=== PATIENT | male | born 1945 | race Caucasian/White ===

== ENCOUNTER → 2022-01-19 09:46 | Outpatient (BNVA) | payer MEDICARE, SELFPAY | PROVIDERS: Visit Provider Urology | DX: R97.20 Elevated prostate specific antigen [PSA] (principal); N40.1 Benign prostatic hyperplasia with lower urinary tract symptoms; N13.8 Other obstructive and reflux uropathy | CPT/HCPCS: 51798; 99202 ==

== ENCOUNTER → 2022-05-22 10:52 | Outpatient (BNVA) | payer MEDICARE, SELFPAY | PROVIDERS: PCP Internal Medicine; Visit Provider Urology | DX: R97.20 Elevated prostate specific antigen [PSA] (principal); N40.1 Benign prostatic hyperplasia with lower urinary tract symptoms; N13.8 Other obstructive and reflux uropathy | CPT/HCPCS: 51798; 99212 ==

== ENCOUNTER → 2022-12-05 08:15 | Outpatient (BNVA) | payer MEDICARE, SELFPAY | PROVIDERS: PCP Internal Medicine; Visit Provider Urology | DX: N40.1 Benign prostatic hyperplasia with lower urinary tract symptoms (principal); N13.8 Other obstructive and reflux uropathy; R97.20 Elevated prostate specific antigen [PSA] | CPT/HCPCS: 51798; 99212 ==

== ENCOUNTER 2023-12-05 08:17 | Outpatient (AMB) | payer MEDICARE, SELFPAY ==
--- NOTE | 2023-12-05 08:24 | MHC.OFFVIS ---
Intake Visit Reasons: 1Y PSA(SET) Intake Note: Patient is Present for PVR/PSA Urology Med: Finasteride Antibiotic Allergy: None Blood Thinner: None Last PVR: 39 Todays PVR: 0 Allergies No Known Allergies Allergy (Verified 12/05/23 08:25) HPI Comments Details: Sudhir is a pleasant male. He is a patient of Dr. Patel. He is seen for the following urologic conditions - elevated PSA and BPH Slight rise in finasteride Continue with medication Twelve month follow-up Discussed his diabetes. Has significant improvement with insulin control by going for evening light exercise Has been placed on Mounjaro and has lost 40 lb BPH with elevated PSA PSA movement detected through primary care surveillance 11/17 9.2, 04/19 3.0, 12/18 2.1, 12/19 3.0 Minimal urinary symptoms Nocturia x2, feeling of complete emptying, minimal urge, adequate stream LOKESH normal Discussed use of finasteride versus biopsy verses urine DNA test 12 month follow-up PSA PFSH Medical History HTN (hypertension) Renal insufficiency Review of Systems Const Denies chills and Denies fever(s) Card Reports no additional complaints and Denies syncope Resp Denies cough GI Denies abdominal pain and Denies heartburn Reports as per HPI and Denies change in libido Neuro Denies syncope Psych Denies change in libido Endo Denies change in libido Physical Exam Const General: cooperative, healthy appearing, comfortable and no acute distress Orientation/consciousness: patient oriented x3 HEENT Face and sinus: Yes normal facial exam Mouth: moist mucous membranes Neck Neck: Yes normal visual inspection, Yes full ROM and Yes trachea midline Chest Chest palpation & inspection: normal inspection of the chest Resp Effort & Inspection: normal respiratory effort, able to speak in complete sentences and no respiratory distress GI Inspection: Yes normal to inspection Back/Spine/Pelvis Cervical Spine: normal cervical lordosis Thoracic/Lumbar Spine: thoracic and lumbar spine normal to inspection Skin General skin exam: no rashes or lesions noted Neuro General: patient oriented x3, gait normal, tone normal and moves all extremities Extrem General: Yes normal to inspection and Yes capillary refill normal Office Procedures Post Void Residual Post Residual Void Post Void Residual (PVR): 0 [id number] Void Residual by ultrasound Assessment & Plan Assessment & Plan (1) Elevated PSA: Code(s): R97.20 - Elevated prostate specific antigen [PSA] Category: Medical (2) BPH w urinary obs/LUTS: Code(s): N40.1 - Benign prostatic hyperplasia with lower urinary tract symptoms; N13.8 - Other obstructive and reflux uropathy Category: Medical Plan Twelve month follow-up PSA Orders: Orders AMB Post Void Residual by ultrasound Today N13.8 - Other obstructive and reflux uropathy, N40.1 - Benign prostatic hyperplasia with lower urinary tract symptoms Prostate Specific Antigen 364 Days R97.20 - Elevated prostate specific antigen [PSA] Patient Instructions: Imaging studies, laboratory and physical exam results were discussed and reviewed in detail. No major barriers to patient understanding were identified. An opportunity to ask questions regarding the treatment plan was provided. All questions were answered. The patient expressed understanding and agreement with the above treatment plan. The patient is aware they should contact our office by phone for worsening of their current condition or the appearance of new urologic symptoms. Compliance is encouraged with any medications and followup testing that is ordered. It is a privilege to participate in the urologic care of your patient. If you have any questions or concerns regarding treatment for the above conditions, or other urologic issues, please do not hesitate to contact me. The office telephone contact is [phone]. This note is constructed using voice recognition software. While every effort has been made to ensure accuracy rehabilitation technician errors may have been included. Yours sincerely, Dr Ihsan Lazo MD, DEA [facility] - Urology Providers of Expert, Compassionate Care for the Genitourinary System Coding Level of Care Code Est Pt Level 4 (98711) Diagnoses Elevated PSA R97.20 BPH w urinary obs/LUTS N40.1; N13.8 CPT Codes Post Residual Void - PVR CPT Code: 51615-Wwcj Void Residual by ultrasound ([id number])
== END 2023-12-05 09:13 | disposition home or self-care (01) ==
PROVIDERS: Visit Provider Urology
DX: R97.20 Elevated prostate specific antigen [PSA] (principal); N40.1 Benign prostatic hyperplasia with lower urinary tract symptoms; N13.8 Other obstructive and reflux uropathy
CPT/HCPCS: 99213

== ENCOUNTER → 2023-12-05 08:17 | Outpatient (BNVA) | payer MEDICARE, SELFPAY | PROVIDERS: Visit Provider Urology | DX: N40.1 Benign prostatic hyperplasia with lower urinary tract symptoms (principal); N13.8 Other obstructive and reflux uropathy; R97.20 Elevated prostate specific antigen [PSA] | CPT/HCPCS: 51798; 99212 ==

== ENCOUNTER 2024-12-04 08:23 | Outpatient (AMB) | payer MEDICARE, SELFPAY ==
--- OUTSIDE RECORDS SUMMARY | 2024-12-04 08:34 | XMS_ITS | Clinical Summary ---
Author Organization [facility] Address [address] [place] [address] Care Team Providers Care Infection Control Nurse Name Role Phone Cori Wilhelm APRN Primary Care Provider [phone] Choco Cori Rodriguez APRN Unavailable [phone] Allergies No known active allergies Medications finasteride (PROSCAR) 5 MG tablet Take 1 tablet (5 mg total) by mouth daily. Take one tablet by mouth daily 022 Active SUPPLY DME MISCIndications :Diabetes mellitus type 2, insulin dependent ([facility]) 32 gauge, 4 mm pen needles for insulin pen; inject long acting insulin subcutaneously as instructed at bedtime 100 each 022 Active hydrocortisone 2.5 % cream PRN 023 Active SUPPLY DME MISCIndications :Diabetes mellitus type 2, insulin dependent ([facility]) One touch Ultra test strips, test blood sugar two times a day 200 each 024 Active SUPPLY DME MISCIndications :Diabetes mellitus type 2, insulin dependent ([facility]) Lancets, for testing blood sugar two times a day 200 each 6 024 Active ondansetron (ZOFRAN) 4 MG tabletIndicatio ns:Nausea Take 1 tablet (4 mg total) by mouth 3 times daily (every 8 hours) as needed for nausea or vomiting. 20 tablet 024 Active glucose blood test stripIndication s:Diabetes mellitus type 2, insulin dependent ([facility]) Test blood glucose two times a day 200 test strip 1 024 Active OneTouch Delica Lancets 33G MiscIndications :Diabetes mellitus type 2, insulin dependent (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 90 tablet 1 024 Active amLODIPine (NORVASC) 10 MG tabletIndicatio ns:Primary hypertension TAKE 1 TABLET BY MOUTH DAILY 90 tablet 3 024 Active spironolactone (ALDACTONE) 25 MG tabletIndicatio ns:Primary hypertension TAKE 1 TABLET BY MOUTH DAILY 90 tablet 3 024 Active pioglitazone (ACTOS) 45 MG tabletIndicatio ns:Diabetes mellitus type 2, insulin dependent (HCC) TAKE 1 TABLET BY MOUTH DAILY 90 tablet 3 024 Active Toujeo Max SoloStar 300 UNIT/ML CONCENTRATED prefilled pen injectionIndica tions:Diabetes mellitus type 2, insulin dependent (HCC) INJECT 36 UNITS SUBCUTANEOUSLY AT NIGHT 12 mL 3 024 Active atorvastatin (LIPITOR) 80 MG tabletIndicatio ns:Diabetes mellitus type 2, insulin dependent (HCC) TAKE 1 TABLET BY MOUTH DAILY 90 tablet 3 024 Active Jardiance 10 MG tabletIndicatio ns:CKD stage G3b/A1, GFR 30-44 and albumin creatinine ratio <30 mg/g (HCC),Primary hypertension,Di abetes mellitus type 2, insulin dependent (HCC) TAKE 1 TABLET BY MOUTH EVERY MORNING 90 tablet 3 025 Active hydroCHLOROthia zide (HYDRODIURIL) 25 MG tabletIndicatio ns:Primary hypertension TAKE 1 TABLET BY MOUTH DAILY 90 tablet 3 025 Active metFORMIN (GLUCOPHAGE) 500 MG tabletIndicatio ns:Diabetes mellitus type 2, insulin dependent (HCC) TAKE 1 TABLET BY MOUTH TWICE DAILY WITH MEALS 180 tablet 3 025 Active Mounjaro 2.5 MG/0.5ML pen-injectorInd ications:Diabet es mellitus type 2, insulin dependent (HCC) INJECT THE CONTENTS OF ONE PEN SUBCUTANEOUSLY WEEKLY DIRECTED 6 mL 1 025 Active tirzepatide (Mounjaro) 2.5 mg/0.5 mL pen-injectorInd ications:Diabet es mellitus type 2, insulin dependent (HCC) INJECT THE CONTENTS OF ONE PEN SUBCUTANEOUSLY WEEKLY DIRECTED 6 mL 1 024 2024 Discontinued metFORMIN (GLUCOPHAGE) 500 MG tabletIndicatio ns:Diabetes mellitus type 2, insulin dependent (HCC) Take 1 tablet (500 mg total) by mouth 2 (two) times a day with meals. 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 Lazo [facility] for urologist. Does not remember the name of the medication he is talking, will call back with the name. Mostly asymptomatic except for mild nocturia. Has PSA and follow-up with urology pending within the next few weeks. Primary hypertension 05/08/2022 Assessment & Plan (04/07/2024 10:28 PM EDT): Blood pressure is normal. No side effects. Patient will continue with current regimen. Assessment & Plan (12/11/2023 11:21 PM EDT): Blood pressure is normal. No side effects. Patient will continue with current regimen. Continue a minimum of 150 minutes of exercise a week. \ Assessment & Plan (03/27/2023 8:52 AM EDT): Blood pressure is normal. No side effects. Patient will continue with current regimen. Recommend a minium of 150 minutes of exercise a week. Assessment & Plan (12/17/2022 9:01 AM EDT): Blood pressure is normal. No side effects. Patient will continue with current regimen. DASH diet Recommend a minium of 150 minutes of exercise a week. Assessment & Plan (05/08/2022 9:18 AM EDT): Stable on current medication regimen which she will continue. Check CMP and UA. Dyslipidemia 05/08/2022 Assessment & Plan (12/11/2023 11:22 PM EDT): Stable LDL at goal will continue Atorvastatin daily. Assessment & Plan (03/27/2023 8:46 AM EDT): LDL 57 mg/DL At goal. Will continue atorvastatin 80 mg daily. Assessment & Plan (12/17/2022 9:01 AM EDT): LDL at goal will continue Atorvastatin. Assessment & Plan (05/08/2022 9:19 AM EDT): Tolerates current dose of atorvastatin well and will continue. Check fasting lipid panel. LDL goal is 70 or less Diabetes mellitus type 2, insulin dependent 04/28 Assessment & Plan (04/07/2024 10:31 PM EDT): Patient hemoglobin A1c is 6.1% . Patient is at goal No side effects with current regimen Will decrease Metformin to 500 mg bID, Toushauna and Jeanettero Continue to recommend ADA diet. Exercise a minimum of 150 minutes/week. Annual eye exam Will continue to monitor quarterly. Assessment & Plan (12/11/2023 11:20 PM EDT): Patient hemoglobin A1c is 6.2% Patient is at goal No side effects with current regimen He will continue metformin, mounjaro at current dose Will begain to Decrease actos. Continue to recommend ADA diet. Exercise a minimum of 150 minutes/week. Annual eye exam Will continue to monitor quarterly. Assessment & Plan (06/13/2023 12:45 PM EST): Patient is hemoglobin A1c has increased. He notes an increase in portion and snacking. He is walking less due to weather. But he still rides his bike is much as possible. At this time we will add Mounjaro to regimen to help with weight loss and improve blood glucose. Discussed common side effects patient willing to start. Assessment & Plan (03/27/2023 8:45 AM EDT): Patient hemoglobin A1c is 7.1% . Patient is at goal No side effects with current regimen She/He will continue his current regimen Continue to recommend ADA diet. Exercising 3 to 5 days a week for minimal 35 minutes. Annual eye exam Will continue to monitor quarterly. Assessment & Plan (12/17/2022 9:00 AM EDT): Patient hemoglobin A1c was 7.1%. Patient is at goal No side effects with current regimen He will continue his current regimen of metformin and Toujeo Continue to recommend ADA diet. He will continue regular exercise. Annual eye exam Will continue to monitor quarterly. Assessment & Plan (05/08/2022 9:17 AM EDT): Continue current dose medications. Check labs. Patient reports eye exam is up-to-date but does not remember the name of his eye doctor. Will obtain eye exam reports once we know the doctor's information. Check labs. Follow-up in 6 weeks. BMI 32.0-32.9,adult 05/08/2022 Assessment & Plan (05/08/2022 9:18 AM EDT): Weight loss counselling done - diet and exercise. Colon cancer screening 05/08/2022 Assessment & Plan (06/19/2022 8:15 AM EST): Done summer at [facility] Assessment & Plan (05/08/2022 9:19 AM EDT): Address at next visit. Vitamin D deficiency 05/08/2022 Assessment & Plan (05/08/2022 9:20 AM EDT): Continue Vit D supplements if any. Check levels and replenish orally ( OTC or prescription) if needed. History of skin cancer 05/08/2022 Assessment & Plan (05/08/2022 9:19 AM EDT): History of basal cell cancer, right side of face, s/p excision. Sees dermatology in [place] twice a year for skin cancer checks. Advised to use sunscreen when outside of SPF 50. Chronic edema 05/08/2022 Assessment & Plan (05/08/2022 9:30 AM EDT): Controlled with support hose and diuretics. Continue same. Encounters Date Type Department Care Team Description 11/30/2024 Orders Only [facility] [address] [place] [address] Primary Care, Scan 11/29/[address] [address] Cori Wilhelm APRN Diabetes mellitus type 2, insulin dependent (HCC) 11/23/2024 Orders Only [address] [address] Cori Wilhelm APRN Primary hypertension (Primary Dx); Diabetes mellitus type 2, insulin dependent (HCC); Dyslipidemia; Screening for prostate cancer 11/23/[address] [address] Cori Wilhelm APRN 11/07/[address] [address] Cori Wilhelm APRN Diabetes mellitus type 2, insulin dependent (HCC) 09/06/[address] [address] Cori Wilhelm APRN Primary hypertension from Last 3 Months Immunizations Immunization Administration Dates Next Due Influenza High-Dose Quadriva lent,(FLUZONE HIGH-DOSE), Perservative Free IM 0.7 mL 65 years and older 04/14/2021 Pneumococcal Polysaccharide 23-Valent 03/27/2023 Social History Tobacco Use Types Packs/Day Years Used Date Smoking Tobacco: Never Smokeless Tobacco: Never Tobacco Cessation:Counseling Given: Not Answered Alcohol Use Standard Drinks/Week Comments Yes 0 (1 standard drink = 0.6 oz pur e alcohol) social use PHQ-2 Answer Date Recorded PHQ-2 Total Score 0 12/11/2023 Sex and Gender Information Value Date Recorded Sex Assigned at Male 12/10/2023 8:24 PM EDT Legal Sex Male 3:30 PM EDT Gender Identity Male 12/10/2023 8:24 PM EDT Sexual Orientation Heterosexual (straight) 12/09 8:24 PM EDT Last Filed Vital Signs Vital Sign Reading Time Taken Comments Blood Pressure 132/64 04/07/2024 9:49 AM EDT Pulse 57 04/07/2024 9:49 AM EDT Temperature 36.3 ??C (97.3 ??F) 04/07/2024 9:49 AM ED T Respiratory Rate 17 04/07/2024 9:49 AM EDT Oxygen Saturation 98% 04/07/2024 9:49 AM EDT Inhaled Oxygen Concentration - - Weight 85.7 kg (189 lb) 04/07/2024 9:49 AM EDT Height 175.3 cm (5' 9 ) 04/07/2024 9:49 AM EDT Body Mass Index 27.91 04/07/2024 9:49 AM EDT Plan of Treatment Upcoming Encounters Date Type Department Care Team (Late st Contact Info) Description 12/11/2024 1:45 PM EDT Office Visit [facility] Department of Internal Medicine & Nephrology [place] [address] [facility] [address] [place] [phone] Ronald Wood MD [address] [facility] [address] [place] [address] 01/04/2025 3:00 PM EDT Office Visit [facility] [address] [facility] [address] [place] [phone] Cori Wilhelm APRN 100 [facility] [address] [place], [place] [address] Health Maintenance Due Date Last Done Comments Hepatitis C Virus Screening 1945 Creatinine with GFR 1957 Lipid Panel 1957 Microalbumin/Creatinine Ratio Urine 1965 Physical 1965 DTaP/Tdap/Td Vaccines (1 - Tdap) 1966 Zoster (Shingles) Vaccine (1 of 2) 1997 RSV Vaccine 60 years and older and Patients (1 - 1-dose 75+ series) 2022 Pneumococcal Vaccines 50+ (2 of 2 - PCV) 03/27/2024 03/27/2023 COVID-19 Vaccine (3 - season) 2024 10/28/2020, 09/30/2020 Ophthalmology Exam 05/08/2024 05/08/2023, 12/10/2022 Hemoglobin A1C 06/03/2024 12/02/2023, 05/29, 03/27/2023, Additional history exists Annual Wellness Visit 06/13/2024 06/13/2023, 022 Foot Exam 12/10/2024 12/11/2023, 11/26, 12/11/2023, Additional history exists Influenza Vaccine 02/26/2025 04/14/2021 Hepatitis B Vaccines Aged Out No long er eligible based on patient's age to complete this topic Procedures Procedure Name Priority Date/Time Associated Diagnosis Comments LAB RESULT Routine 11/27/2024 10:10 AM EDT HEMOGLOBIN A1C Routine 12/02/2023 HX OPHTHALMOLOGY TESTING PROCEDURES Routine 05/08/2023 from Last 3 Months or Most Recently Relevant to Health Maintenance Results * LAB RESULT (11/27/2024 10:10 AM EDT) us Scan Primary Care HX AMB PROCEDURES Edited Resul t - Final * Hemoglobin A1C (12/02/2023) Hemoglobin A1C 6.2 % Comment:SCANNED RESULT Blood specimen (specimen) Blood specimen / Unknown 12/02/2023 us Scan Primary Care LAB BLOOD ORDERABLES Edited Re sult - Final * OPHTHALMOLOGY TESTING PROCEDURES (05/08/2023) us Scan Ophthalmology HX AMB PROCEDURES Edited Resu lt - Final from Last 3 Months or Most Recently Relevant to Health Maintenance Insurance MEDICARE PART A & B [facility] MEDICARE PART A & B [facility] Care Teams Infection Control Nurse Relationship Specialty Start Date End Date Cori Wilhelm APRN [address] [place] [address] PCP - General Family Medicine 12/17/22 Cori Wilhelm APRN [address] [facility] [address] [place] [address] PCP - MSSP Attributed 10/28/23
--- OUTSIDE RECORDS SUMMARY | 2024-12-04 08:34 | XMS_ITS | Encounter Summary ---
Author Organization [facility] Address [address] [place] [address] Care Team Providers Care Occupational Therapy Department Chair Name Role Phone Cori Wilhelm ESTEBAN Primary Care Provider [phone] Cori Wilhelm ESTEBAN Unavailable [phone] Encounter Details Date Type Department Care Team (Late st Contact Info) Description 11/30/2024 Orders Only [facility] [address] [place] [address] Primary Care, Scan Social History Tobacco Use Types Packs/Day Years Used Date Smoking Tobacco: Never Smokeless Tobacco: Never Alcohol Use Standard Drinks/Week Comments Yes 0 (1 standard drink = 0.6 oz pur e alcohol) social use PHQ-2 Answer Date Recorded PHQ-2 Total Score 0 12/11/2023 Sex and Gender Information Value Date Recorded Sex Assigned at Male 12/10/2023 8:24 PM EDT Legal Sex Male 3:30 PM EDT Gender Identity Male 12/10/2023 8:24 PM EDT Sexual Orientation Heterosexual (straight) 12/09 8:24 PM EDT documented as of this encounter Plan of Treatment Upcoming Encounters Date Type Department Care Team (Late st Contact Info) Description 12/11/2024 1:45 PM EDT Office Visit [facility] Department of Internal Medicine & Nephrology [place] [address] [facility] [address] [place] [phone] Ronald Wood MD [address] [facility] [address] [place] [address] 01/04/2025 3:00 PM EDT Office Visit [facility] [address] [place] [address] Cori Wilhelm APRN [address] [place] [address] documented as of this encounter Procedures Procedure Name Priority Date/Time Associated Diagnosis Comments LAB RESULT Routine 11/27/2024 10:10 AM EDT documented in this encounter Results * LAB RESULT (11/27/2024 10:10 AM EDT) us Scan Primary Care HX AMB PROCEDURES Edited Resul t - Final documented in this encounter Visit Diagnoses Not on filedocumented in this encounter Care Teams Occupational Therapy Department Chair Relationship Specialty Start Date End Date Cori Wilhelm, ROUTE DELIVERY SERVICE DRIVER [address] [facility] [address] [place] [address] PCP - General Family Medicine 12/17/22 Cori Wilhelm, ROUTE DELIVERY SERVICE DRIVER [address] [facility] [address] [place] [address] PCP - MSSP Attributed 10/28/23 documented as of this encounter
--- OUTSIDE RECORDS SUMMARY | 2024-12-04 08:34 | XMS_ITS | Encounter Summary ---
Author Organization [facility] Address [address] [place] [address] Care Team Providers Care Entry Level Administrative Assistant Name Role Phone Steven Patel MD Primary Care Provider Cori Wilhelm APRN Primary Care Provider [phone] Cori Wilhelm APRN Unavailable Encounter Details Date Type Department Care Team (Late Contact Info) Description 12/11/2022 Scanned Document [facility] EMERGENCY MED SCAN Emergency Medicine, Scan Social History Tobacco Use Types Packs/Day Years Used Date Smoking Tobacco: Never Smokeless Tobacco: Never Alcohol Use Standard Drinks/Week Comments Yes 0 (1 standard drink = 0.6 oz pur e alcohol) social use Sex and Gender Information Value Date Recorded Sex Assigned at Male 12/10/2023 8:24 PM EDT Legal Sex Male 3:30 PM EDT Gender Identity Male 12/10/2023 8:24 PM EDT Sexual Orientation Heterosexual (straight) 12/09 8:24 PM EDT documented as of this encounter Plan of Treatment Upcoming Encounters Date Type Department Care Team (Late Contact Info) Description 12/11/2024 1:45 PM EDT Office Visit [facility] Department of Internal Medicine & Nephrology [place] [address] [facility] [address] [place] [address] Ronald Wood MD [address] [facility] [address] [place], [place] [id number] 01/04/2025 3:00 PM EDT Office Visit [facility] 100 [facility] [address] [place] [address] Cori Wilhelm APRN [address] [place] [address] documented as of this encounter Visit Diagnoses Not on filedocumented in this encounter Care Teams Entry Level Administrative Assistant Relationship Specialty Start Date End Date Steven Patel MD PCP - General Internal Medicine 05/08/22 12/16/22 Cori Wilhelm APRN [address] [place] [address] PCP - General Family Medicine 12/17/22 Cori Wilhelm APRN [address] [place] [address] PCP - MSSP Attributed 10/28/23 documented as of this encounter
--- OUTSIDE RECORDS SUMMARY | 2024-12-04 08:34 | XMS_ITS | Encounter Summary ---
Author Organization [facility] Address [address] [place] [address] Care Team Providers Care Piercing Specialist Name Role Phone Cori Wilhelm APRN Primary Care Provider [phone] Cori Wilhelm APRN Unavailable Reason for Visit * Reason Comments Medication Refill Encounter Details Date Type Department Care Team (Late st Contact Info) Description 11/29/2024 Refill [facility] 100 [facility] [address] [place] [phone] PlentywoodCori tiwari APRN [address] [facility] [address] [place] [address] Diabetes mellitus type 2, insulin dependent (HCC) Social History Tobacco Use Types Packs/Day Years [...] PM EDT documented as of this encounter Miscellaneous Notes * Telephone Encounter - Pham Baltazar LPN - 11/30/2024 8:17 AM EDTSummary: Labs completed at [facility] 11.27.2024 Spoke with pt. He completed labs at [facility] on Saturday11/27/2024. documented in this encounter Plan of Treatment Upcoming Encounters Date Type Department Care Team (Late st Contact Info) Description 12/11/2024 1:45 PM EDT Office Visit [facility] Department of Internal Medicine & Nephrology [place] [address] [facility] 100 [place] [address] Ronald Wood MD 85 [facility] [address] [place] [address] 01/04/2025 3:00 PM EDT Office Visit [facility] [address] [place] [address] Cori Wilhelm APRN [address] [address] documented as of this encounter Visit Diagnoses Diagnosis Diabetes mellitus type 2, insulin dependent (HCC) documented in this encounter Care Teams Piercing Specialist Relationship Specialty Start Date End Date Cori Wilhelm APRN [address] [address] PCP - General Family Medicine 12/17/22 Cori Wilhelm APRN [address] [address] PCP - MSSP Attributed 10/28/23 documented as of this encounter
--- NOTE | 2024-12-04 08:35 | MHC.OFFVIS ---
Intake Visit Reasons: 1y/PSA Intake Note: Patient is Present for 1 year follow up/PSA Urology Med: Finasteride Antibiotic Allergy: None Blood Thinner: None PVR:63ml Allergies No Known Allergies Allergy (Verified 12/04/24 08:38) HPI Comments Details: Sudhir is a pleasant male. He is a patient of Dr. Patel. He is seen for the following urologic conditions - elevated PSA and BPH Slight rise in finasteride Continue with medication Twelve month follow-up Discussed his diabetes. Has significant improvement with insulin control by going for evening light exercise Has been placed on Mounjaro and has lost 40 lb Cut finasteride back to Saturday, Saturday, Saturday Urinary Symptoms Review - Long-term finasteride usage - PSA decreased from 9.2 (October 2021) to 2.8 (November 2024) with finasteride therapy - Reduced frequency of urinary tract symptoms noted - Type 2 Diabetes managed with reduced insulin requirement BPH with elevated PSA PSA movement detected through primary care surveillance 11/17 9.2, 04/19 3.0, 12/18 2.1, 12/19 3.0, 12/20 2.8 Minimal urinary symptoms Nocturia x2, feeling of complete emptying, minimal urge, adequate stream LOKESH normal Discussed use of finasteride versus biopsy verses urine DNA test 12 month follow-up PSA PFSH Medical History HTN (hypertension) Renal insufficiency Review of Systems Const Denies chills and Denies fever(s) Card Reports no additional complaints and Denies syncope Resp Denies cough GI Denies abdominal pain and Denies heartburn Reports as per HPI and Denies change in libido Neuro Denies syncope Psych Denies change in libido Endo Denies change in libido Physical Exam Const General: cooperative, healthy appearing, comfortable and no acute distress Orientation/consciousness: patient oriented x3 HEENT Face and sinus: Yes normal facial exam Mouth: moist mucous membranes Neck Neck: Yes normal visual inspection, Yes full ROM and Yes trachea midline Chest Chest palpation & inspection: normal inspection of the chest Resp Effort & Inspection: normal respiratory effort, able to speak in complete sentences and no respiratory distress GI Inspection: Yes normal to inspection Back/Spine/Pelvis Cervical Spine: normal cervical lordosis Thoracic/Lumbar Spine: thoracic and lumbar spine normal to inspection Skin General skin exam: no rashes or lesions noted Neuro General: patient oriented x3, gait normal, tone normal and moves all extremities Extrem General: Yes normal to inspection and Yes capillary refill normal Assessment & Plan Assessment & Plan (1) BPH w urinary obs/LUTS: Code(s): N40.1 - Benign prostatic hyperplasia with lower urinary tract symptoms; N13.8 - Other obstructive and reflux uropathy Category: Medical (2) Elevated PSA: Code(s): R97.20 - Elevated prostate specific antigen [PSA] Category: Medical Plan Plan 1. Elevated Prostate-Specific Antigen Psa PSA controlled through finasteride. Reduce to MWF. Continue monitoring. 2. Benign Prostatic Hyperplasia Bph Managed effectively with finasteride. Observance of symptoms recommended. Discussion Notes I discussed with the patient the effective management of elevated PSA through finasteride and advised a reduction to thrice weekly. I explained the importance of monitoring PSA levels and the potential impact of reducing medication on hair loss. For BPH, I recommended maintaining the reduced finasteride dose. Regarding diabetes management, we reviewed the success of Mounjaro and the significant weight loss impact, allowing for decreased insulin needs. We discussed the risk of weight gain if the medication is stopped. The chronic kidney disease management involving Jardiance was addressed, with emphasis on monitoring nocturia and renal function to adjust the medication dosage. The patient was informed of all potential risks and benefits and was advised on anticipatory guidance for each condition. Patient Instructions - Continue reduced dose of finasteride to Saturday, Saturday, Saturday. - Regularly monitor PSA levels and report any changes in urinary symptoms. - Maintain physical activity and walking regimen. - Monitor blood glucose levels and adjust insulin as necessary. - Stay on current Jardiance dose and monitor kidney function. - Report any new symptoms or changes immediately. Patient Instructions: This note is constructed using voice recognition software. While every effort has been made to ensure accuracy senior physical therapist errors may have been included. Imaging studies, laboratory and physical exam results were discussed and reviewed in detail. No major barriers to patient understanding were identified. An opportunity to ask questions regarding the treatment plan was provided. All questions were answered. The patient expressed understanding and agreement with the above treatment plan. The patient is aware they should contact our office by phone for worsening of their current condition or the appearance of new urologic symptoms. Compliance is encouraged with any medications and followup testing that is ordered. It is a privilege to participate in the urologic care of your patient. If you have any questions or concerns regarding treatment for the above conditions, or other urologic issues, please do not hesitate to contact me. The office telephone contact is [phone]. Sincerely, Dr Ihsan Lazo MD, DEA [facility] - Urology Compassionate Specialist Care for the Genitourinary System Coding Level of Care Code Est Pt Level 4 (27350) Complex EM visit Add On G2211 Diagnoses BPH w urinary obs/LUTS N40.1; N13.8 Elevated PSA R97.20
--- OUTSIDE RECORDS SUMMARY | 2024-12-04 08:35 | XMS_ITS | Clinical Summary ---
Author Organization [address] Address [address] [place] [address] Care Team Providers Care Granite Setter Name Role Phone Choco Cori Rodriguez NP Primary Care Provider [phone] Allergies No known active allergies Medications amLODIPine (NORVASC) 10 mg tablet Take 1 tablet (10 mg total) by mouth daily. 3 Active atorvastatin (LIPITOR) 80 mg tablet Take 1 tablet (80 mg total) by mouth daily. 3 Active carvediloL (COREG) 12.5 mg Immediate Release tablet Take 0.5 tablets (6.25 mg total) by mouth. 4 Active JARDIANCE 10 mg tablet Take 1 tablet (10 mg total) by mouth daily. 4 Active finasteride (PROSCAR) 5 mg tablet 4 Active hydroCHLOROthi azide (HYDRODIURIL) 25 mg tablet Take 1 tablet (25 mg total) by mouth daily. 3 Active hydrocortisone (HYTONE) 2.5 % cream PRN 3 Active TOUJEO MAX U-300 SOLOSTAR 300 unit/mL (3 mL) pen INJECT 36 UNITS SUBCUTANEOUSLY AT NIGHT 4 Active metFORMIN (GLUCOPHAGE) 500 mg Immediate Release tablet Take 1 tablet (500 mg total) by mouth. 4 Active ondansetron (ZOFRAN) 4 mg tablet Take 1 tablet (4 mg total) by mouth every 8 (eight) hours as needed. 4 Active MOUNJARO 2.5 mg/0.5 mL Pen Injector INJECT THE CONTENTS OF ONE PEN (2.5MG) SUBCUTANEOUSLY WEEKLY DIRECTED 4 Active spironolactone (ALDACTONE) 25 mg tablet Take 1 tablet (25 mg total) by mouth daily. 3 Active pioglitazone (ACTOS) 45 mg tablet Take 1 tablet (45 mg total) by mouth daily. 3 Active azithromycin (ZITHROMAX) 250 mg tablet Take 2 tablets now, then take 1 tablet daily day 2-5. 6 tablet 4 Active Active Problems Problem Noted Date Diagnosed Date Persistent cough for 3 weeks or longer 4 Bronchitis 05/06/2024 Social History Tobacco Use Types Packs/Day Years Used Date Smoking Tobacco: Never Tobacco Cessation:Counseling Given: Not Answered Alcohol Use Standard Drinks/Week Comments Never 0 (1 standard drink = 0.6 oz pur e alcohol) Sex and Gender Information Value Date Recorded Sex Assigned at Not on file Legal Sex Male 8:22 PM EST Gender Identity Not on file Sexual Orientation Not on file Last Filed Vital Signs Vital Sign Reading Time Taken Comments Blood Pressure 122/75 05/11/2024 8:35 AM EDT Pulse 60 05/11/2024 8:35 AM EDT Temperature 36.7 ??C (98.1 ??F) 05/11/2024 8:35 AM ED T Respiratory Rate 16 05/11/2024 8:35 AM EDT Oxygen Saturation 99% 05/11/2024 8:35 AM EDT Inhaled Oxygen Concentration - - Weight 77.1 kg (170 lb) 05/11/2024 8:35 AM EDT Height 175.3 cm (5' 9 ) 05/11/2024 8:35 AM EDT Body Mass Index 25.1 05/11/2024 8:35 AM EDT Plan of Treatment Health Maintenance Due Date Last Done Comments HIV screening 1960 Hepatitis C screening 1965 Prediabetes Surveillance 1965 Tetanus adult (Td q 10,TDAP once) 1967 Lipid disorder screening 1987 Diabetes screening 1992 Shingles vaccine (Shingrix) (1 of 2 - Shingrix (RZV) 2 Dose Standard Series) 1997 RSV Immunization (1 - 1-dose 75+ series) 2022 Pneumococcal Vaccine (50+ ye ars) (2 of 2 - PCV) 03/27/2024 03/27/2023 Covid-19 vaccine series (1 - 2023- season) 2024 Influenza vaccine 03/29/2025 04/14/2021 Meningococcal Vaccine Aged Out No willam janeth eligible based on patient's age to complete this topic Insurance MEDICARE [facility] MEDICARE [facility] MEDICARE [facility] Member Subscriber Plan / Payer ( fective 2023-) Name:Sudhir Baltazar Relation to Subscriber:Self Name:Sudhir Baltazar Payer ID:[id number] Group ID:Not on file Type:Not on file Address: [place] [id number] [place] [id number] Care Teams Granite Setter Relationship Specialty Start Date End Date Cori Wilhelm NP [address] [facility] 101 [place] [address] PCP - General 05/06/24
--- OUTSIDE RECORDS SUMMARY | 2024-12-04 08:35 | XMS_ITS | Encounter Summary ---
Author Organization [address] [address] Care Team Providers Care Utility Mechanic Supervisor Name Role Phone Steven Patel MD Primary Care Provider [phone] Cori Wilhelm APRN Primary Care Provider Cori Wilhelm APRN Unavailable Encounter Details Date Type Department Care Team (Late Contact Info) Description 06/22/2022 Scanned Document [address] [place] [phone] [place] [id number] [place] [id number] Social History Tobacco Use Types Packs/Day Years [...] Orientation Heterosexual (straight) 12/09 8:24 PM EDT COVID-19 Exposure Response Date Recorded In the last 10 days, have yo u been in contact with someone who was confirmed or suspected to have Coronavirus/COVID-19? No / Unsure 06/19/2022 7:28 AM EST documented as of this encounter Plan of Treatment Upcoming Encounters Date Type Department Care Team (Late Contact Info) Description 12/11/2024 1:45 PM EDT Office Visit [facility] Department of Internal Medicine & Nephrology [place] [address] [place] [address] Ronald Wood MD 85 [facility] [address] [place] [address] 01/04/2025 3:00 PM EDT Office Visit [facility] [address] [place] [address] Cori Wilhelm APRN [address] [place] [address] documented as of this encounter Visit Diagnoses Not on filedocumented in this encounter Care Teams Utility Mechanic Supervisor Relationship Specialty Start Date End Date Steven Patel MD PCP - General Internal Medicine 05/08/22 12/16/22 Cori Wilhelm, ESTEBAN [address] [place] [address] PCP - General Family Medicine 12/17/22 Cori Wilhelm, ESTEBAN [address] [place] [address] PCP - MSSP Attributed 10/28/23 documented as of this encounter
--- OUTSIDE RECORDS SUMMARY | 2024-12-04 08:35 | XMS_ITS | Encounter Summary ---
Author Organization [facility] Address [address] [place] [address] Care Team Providers Care Store Stock Help Name Role Phone Pcp, No Primary Care Provider Unavailabl Steven Jay MD Primary Care Provider Cori Wilhelm APRN Primary Care Provider Cori Wilhelm APRN Unavailable Encounter Details Date Type Department Care Team (Late st Contact Info) Description 05/01/2022 Scanned Document [address] [phone] Provider, Generic Social History Tobacco Use Types Packs/Day Years Used Date Smoking Tobacco: Never Assessed Sex and Gender Information Value Date Recorded [...] Physicians Department of Internal Medicine & Nephrology [place] 160 [facility] [address] [place] [phone] Ronald Wood MD 85 [facility] [address] [place] [address] 01/04/2025 3:00 PM EDT Office Visit [address] [place] [address] Cori Wilhelm APRN [address] [facility] 101 [place] [address] documented as of this encounter Visit Diagnoses Not on filedocumented in this encounter Care Teams Store Stock Help Relationship Specialty Start Date End Date Pcp, No 80 [place] [address] PCP - General 03/29/22 05/07/22 Steven Patel MD 80 [place] [address] PCP - General Internal Medicine 05/08/22 12/16/22 Cori Wilhelm, ESTEBAN [address] [facility] 101 [place] [address] PCP - General Family Medicine 12/17/22 Cori Wilhelm, ESTEBAN [address] [facility] 101 [place] [address] PCP - MSSP Attributed 10/28/23 documented as of this encounter
--- OUTSIDE RECORDS SUMMARY | 2024-12-04 08:35 | XMS_ITS | Encounter Summary ---
Author Organization [facility] Address 100 [place] [address] Care Team Providers Care Diagram Clerk Name Role Phone Cori Wilhelm APRN Primary Care Provider [phone] Cori Wilhelm Jennifer ORELLANA Unavailable [phone] Encounter Details Date Type Department Care Team (Late st Contact Info) Description 12/12/2023 [facility] [address] [place] [phone] Cori Wilhelm BENEDICT RodriguezN [address] [place] [address] Diabetes mellitus type 2, insulin dependent (HCC) [...] encounter Miscellaneous Notes * Telephone Encounter - Judy To RN - 12/12/2023 2:24 PM EDT Last Visit: 12/11/23 * Telephone Encounter - Bridget Herbert MA - 12/12/2023 1:47 PM EDT Pharmacy stated pt needs 1 touch ultra test strips, 1 touch delica lancets, both needs ic10 code documented in this encounter Plan of Treatment Upcoming Encounters Date Type Department Care Team (Late st Contact Info) Description 12/11/2024 1:45 PM EDT Office Visit [facility] Department of Internal Medicine & Nephrology [place] [address] [place] [address] Ronald Wood MD 85 [facility] [address] [place] [address] 01/04/2025 3:00 PM EDT Office Visit [facility] [address] [place] [address] Cori Wilhelm APRN [address] [place] [address] documented as of this encounter Visit Diagnoses Diagnosis Diabetes mellitus type 2, insulin dependent (HCC) documented in this encounter Care Teams Diagram Clerk Relationship Specialty Start Date End Date Cori Wilhelm APRN [address] [place] [address] PCP - General Family Medicine 12/17/22 Cori Wilhelm APRN [address] [place] [address] PCP - MSSP Attributed 10/28/23 documented as of this encounter
--- OUTSIDE RECORDS SUMMARY | 2024-12-04 08:35 | XMS_ITS | Encounter Summary ---
Author Organization [facility] Address [address] [place] [address] Care Team Providers Care Researcher Name Role Phone Cori Wilhelm ESTEBAN Primary Care Provider [phone] Cori Wilhelm ESTEBAN Unavailable [phone] Encounter Details Date Type Department Care Team (Late st Contact Info) Description 09/13/2023 Scanned Document [address] [place] [address] Primary Care, Scan Social History Tobacco Use Types Packs/Day Years Used Date Smoking Tobacco: Never Smokeless Tobacco: Never Alcohol Use Standard Drinks/Week Comments Yes 0 (1 standard drink = 0.6 oz pur e alcohol) social use PHQ-2 Answer Date Recorded PHQ-2 Total Score 0 06/13/2023 Sex and Gender Information Value Date Recorded [...] Physicians Department of Internal Medicine & Nephrology [place] 160 [facility] [address] [place] [address] Ronald Wood MD 85 [facility] [address] [place] [address] 01/04/2025 3:00 PM EDT Office Visit [facility] [address] [place] [address] Cori Wilhelm APRN [address] [place] [address] documented as of this encounter Visit Diagnoses Not on filedocumented in this encounter Care Teams Researcher Relationship Specialty Start Date End Date Cori Wilhelm APRN [address] [place] [address] PCP - General Family Medicine 12/17/22 Cori Wilhelm APRN [address] [facility] 101 [place] [address] PCP - MSSP Attributed 10/28/23 documented as of this encounter
--- OUTSIDE RECORDS SUMMARY | 2024-12-04 08:35 | XMS_ITS ---
[facility] Name [facility] History of Medication Use Medication Directions Dispensed Refills Start Date End Date Stat metFORMIN (GLUCOPHAGE) 500 MG tablet Take 1 tablet (500 mg total) by mouth 2 (two) times a day with meals. 06/15/2024 active tirzepatide (Mounjaro) 2.5 mg/0.5 mL pen-injector INJECT THE CONTENTS OF ONE PEN SUBCUTANEOUSLY WEEKLY DIRECTED 06/15/2024 active methylPREDNISolone (MEDROL DOSEPACK) 4 mg tablet follow package directions 05/11/2024 05/19/20 24 active metFORMIN (GLUCOPHAGE) 500 mg Immediate Release tablet Take 1 tablet (500 mg total) by mouth. 04/09/2024 active Jardiance 10 MG tablet TAKE 1 TABLET BY MOUTH EVERY MORNING 03/27/2024 08/28/19 25 active carvediloL (COREG) 12.5 mg Immediate Release tablet Take 0.5 tablets (6.25 mg total) by mouth. 03/27/2024 active carvedilol (COREG) 12.5 MG tablet Take 0.5 tablets (6.25 mg total) by mouth 2 (two) times a day with meals. 03/27/2024 active JARDIANCE 10 mg tablet Take 1 tablet (10 mg total) by mouth daily. 03/27/2024 active finasteride (PROSCAR) 5 mg tablet 03/23/2024 active Toujeo Max SoloStar 300 UNIT/ML CONCENTRATED prefilled pen injection INJECT 36 UNITS SUBCUTANEOUSLY AT NIGHT 10/12/2023 active amLODIPine (NORVASC) 10 mg tablet Take 1 tablet (10 mg total) by mouth daily. 06/10/2023 active pioglitazone (ACTOS) 45 mg tablet Take 1 tablet (45 mg total) by mouth daily. 06/10/2023 active insulin glargine (TOUJEO MAX SoloStar) 300 UNIT/ML CONCENTRATED prefilled pen injection Inject 36 Units under the skin nightly. 07/27/2022 active metFORMIN (GLUCOPHAGE) 850 MG tablet TAKE 1 TABLET BY MOUTH TWICE DAILY WITH MEALS 06/19/2022 active pioglitazone (ACTOS) 45 MG tablet TAKE 1 TABLET BY MOUTH DAILY 06/19/2022 active SUPPLY DME MISC One touch Ultra test strips, test blood sugar two times a day 06/19/2022 active finasteride (PROSCAR) 5 MG tablet Take 1 tablet (5 mg total) by mouth daily. Take one tablet by mouth daily 05/22/2022 active Problems Problem Status Onset Date Problem Type Date of Resoluti on Source Persistent cough for 3 weeks or longer active 2024-05-[address] [facility] Bronchitis active 2024-05-[address] [facility] CKD stage G3b/A1, GFR 30-44 and albumin creatinine ratio <30 mg/g active 2024-03-27 ProblemAct [facility] BMI 32.0-32.9,adult active 2022-05-08 ProblemAct [facility] Chronic edema active 2022-05-08 ProblemAct [facility] T Dyslipidemia active 2022-05-08 ProblemAct [facility] History of skin cancer active 2022-05-08 ProblemAct [facility] Colon cancer screening active 2022-05-08 [facility] Benign prostatic hyperplasia with lower urinary tract symptoms active 2022-05-08 ProblemAct [facility] Primary hypertension active 2022-05-08 ProblemAct [facility] Vitamin D deficiency active 2022-05-08 ProblemAct [facility] Diabetes mellitus type 2, insulin dependent active 2022-05-08 ProblemAct [facility] Immunizations Vaccine Date Source Lot Number Status Pneumococcal Polysaccharide 23-Valent 03/27/2023 [facility] [id number] completed Influenza High-Dose Quadriva lent,(FLUZONE HIGH-DOSE), Perservative Free IM 0.7 mL 65 years and older 04/14/2021 [facility] [id number] completed Encounters Encounter Type Encounter Reason Primary Diagnosis Location Date Ambulatory Cough Cough [facility] 05/11/20 Ambulatory Bronchitis, not specified as acute or chronic Bronchitis, not specified as acute or chronic [facility] 05/06/2024 Ambulatory Essential (primary) hypertension Essential (primary) hypertension [facility] 04/07/2024 Ambulatory Chronic kidney disease, stage 3b Chronic kidney disease, stage 3b [facility] 03/27/2024 Ambulatory Type 2 diabetes mellitus without complications Type 2 diabetes mellitus without complications [facility] 12/11/2023 Ambulatory Type 2 diabetes mellitus without complications Type 2 diabetes mellitus without complications [facility] 06/13/2023 Ambulatory Encounter for immunization Encounter for immunization [facility] 03/27/2023 Ambulatory Encounter for screening for malignant neoplasm of prostate [facility] 12/17/2022 Ambulatory Encounter for general adult medical examination without abnormal findings [facility] 06/19/2022 Ambulatory Essential (prima ry) hypertension [facility] 05/08/2022 Care Team Organization Name Specialty Phone Email Start Date End Da te [facility] Cori Wilhelm NP Primary Care 04/2024 [facility] Cori Wilhelm INTERNET WEBMASTER Primary Care 03/2024 [facility] 05/30/2023 024 [facility] Cori Wilhelm Primary Care 12/17/2022 10/14/2024 [facility] Cori Wilhelm NP Primary Care 12/17/2022 023 [facility] CRISTINA FLORENTINO Primary Care 06/19/2022 5 [facility] NO PCP Primary Care 05/08/2022 12/17/2022 [facility] Cristina Florentino Primary Care 05/08/2022
--- OUTSIDE RECORDS SUMMARY | 2024-12-04 08:35 | XMS_ITS | Encounter Summary ---
Author Organization [facility] Address [address] [place] [address] Care Team Providers Care Overcaster Name Role Phone Cori Wilhelm ESTEBAN Primary Care Provider [phone] Cori Wilhelm ESTEBAN Unavailable [phone] Encounter Details Date Type Department Care Team (Late st Contact Info) Description 09/13/2023 Scanned Document [address] [place] [address] Primary Care, Scan Social History [...] Physicians Department of Internal Medicine & Nephrology [place] 160 [facility] [address] [place] [address] Ronald Wood MD 85 [facility] [address] [place] [address] 01/04/2025 3:00 PM EDT Office Visit [facility] [address] [place] [address] Cori Wilhelm APRN [address] [place] [address] documented as of this encounter Visit Diagnoses Not on filedocumented in this encounter Care Teams Overcaster Relationship Specialty Start Date End Date Cori Wilhelm APRN [address] [place] [address] PCP - General Family Medicine 12/17/22 Cori Wilhelm APRN [address] [facility] 101 [place] [address] PCP - MSSP Attributed 10/28/23 documented as of this encounter
== END 2024-12-04 09:16 | disposition home or self-care (01) ==
LOC: HO.HUSH 08:23
PROVIDERS: PCP Internal Medicine; Visit Provider Urology
DX: N40.1 Benign prostatic hyperplasia with lower urinary tract symptoms (principal); N13.8 Other obstructive and reflux uropathy; R97.20 Elevated prostate specific antigen [PSA]; Z13.9 Encounter for screening, unspecified
CPT/HCPCS: 99214; G2211

== ENCOUNTER → 2024-12-04 08:23 | Outpatient (BNVA) | payer MEDICARE, SELFPAY | PROVIDERS: PCP Internal Medicine; Visit Provider Urology | DX: N40.1 Benign prostatic hyperplasia with lower urinary tract symptoms (principal); N13.8 Other obstructive and reflux uropathy; R97.20 Elevated prostate specific antigen [PSA] | CPT/HCPCS: 51798; 81003; 99212 ==